=== PATIENT | female | born 1960 | race Caucasian/White ===

== ENCOUNTER 2017-12-01 13:00 | Inpatient (IN) | payer OTHER ==
[~2017-12-01] VITALS: Ht 157.5 cm; Wt 70.8 kg
[~2017-12-01 13:00] MED LIST: PROVENTIL0.5 ML/2.5 IH; TESSALON PERLE100 M1 PO; ZYRTEC10 M2 PO
== END 2017-12-20 13:45 | disposition home or self-care (01) | DRG 330 ==
LOC: SURG 12-17 07:00 → O/R 12-17 07:39 → SURH 12-17 07:39 → SURG 12-17 12:30 → SURH 12-17 19:37
PROVIDERS: Colon & Rectal Surgery
PROC: 0DJD8ZZ Inspection of Lower Intestinal Tract, Via Natural or Artificial Opening Endoscopic (ICD-10-PCS; 2017-12-17)
PROC: 3E0F7GC Introduction of Other Therapeutic Substance into Respiratory Tract, Via Natural or Artificial Opening (ICD-10-PCS; 2017-12-17)
PROC: 4A1BXSH Monitoring of Gastrointestinal Vascular Perfusion using Indocyanine Green Dye, External Approach (ICD-10-PCS; 2017-12-17)
PROC: 0DTN4ZZ Resection of Sigmoid Colon, Percutaneous Endoscopic Approach (ICD-10-PCS; principal; 2017-12-17 07:00)
DX: K57.32 Diverticulitis of large intestine without perforation or abscess without bleeding (principal); K91.840 Postprocedural hemorrhage of a digestive system organ or structure following a digestive system procedure; J45.20 Mild intermittent asthma, uncomplicated; D64.89 Other specified anemias

== ENCOUNTER → 2019-06-22 | Outpatient (CLI) | payer OTHER | END | disposition home or self-care (01) | LOC: TOM 08:16 | DX: K57.32 Diverticulitis of large intestine without perforation or abscess without bleeding (principal); R10.13 Epigastric pain; R19.4 Change in bowel habit ==

== ENCOUNTER 2019-06-29 10:36 | Day surgery (SDC) | payer OTHER | END 2019-06-29 14:55 | disposition home or self-care (01) | LOC: AMB-ENDOS 10:36 | DX: K62.89 Other specified diseases of anus and rectum (principal); K57.30 Diverticulosis of large intestine without perforation or abscess without bleeding; K64.8 Other hemorrhoids ==

== ENCOUNTER → 2021-03-23 | Emergency (ER) | payer OTHER ==
[~2021-03-23] VITALS: Ht 167.6 cm; Wt 77.1 kg
[~2021-03-23] MED LIST changes: +METFORMIN HCL500 M3; +SYNTHROID50 MCG
== END | disposition home or self-care (01) ==
LOC: ER 15:09
DX: M54.59 Other low back pain (principal); R30.0 Dysuria

== ENCOUNTER 2024-02-28 08:43 | Emergency (ER) | payer OTHER ==
[~2024-02-28] VITALS: Ht 157.5 cm; Wt 77.1 kg
[~2024-02-28 08:43] MED LIST changes: +ALTACE1.25 MG
[2024-02-28] MEDS ORDERED: KETOROLAC TROMETHAMINE 60 MG VIAL IM STA (10:26)
[2024-02-28 11:14] LABS: HEMATOCRIT 38.1 % (36.0-45.00); HEMOGLOBIN 12.9 g/dL (12.0-15.00); MEAN CELL VOLUME 90.1 fL (80.00-100.00); MEAN CORPUSCULAR HEMOGLOBIN 30.4 pg (27.00-32.0); MEAN CORPUSCULAR HGB CONC 33.8 g/dl (32.0-36.0); PLATELET COUNT 219 K/uL (150-450); RED BLOOD COUNT 4.23 M/uL (4.00-6.00); RED CELL DISTRIBUTION WIDTH 13.3 % (11.5-14.5)
[2024-02-28] MEDS ORDERED: CEFTRIAXONE SODIUM 1,000 MG VIAL IM STA (13:33)
== END 2024-02-28 13:41 | disposition home or self-care (01) ==
LOC: ER 08:45
DX: J03.90 Acute tonsillitis, unspecified (principal); Z87.09 Personal history of other diseases of the respiratory system; Z88.8 Allergy status to other drugs, medicaments and biological substances; E11.9 Type 2 diabetes mellitus without complications; Z79.84 Long term (current) use of oral hypoglycemic drugs; Z20.822 Contact with and (suspected) exposure to COVID-19

== ENCOUNTER → 2025-05-23 | Emergency (ER) | payer OTHER ==
[~2025-05-23] VITALS: Ht 157.5 cm; Wt 66.7 kg
[~2025-05-23] MED LIST changes: +0.9 % SODIUM CHLORIDE 1,000 ML IV ONE; +CEFTRIAXONE SODIUM 1,000 MG VIAL IV ONE; +KETOROLAC TROMETHAMINE 30 MG VIAL IV ONE; +MACROBID 100 M100 MG PO; +OZEMPIC1 MG/0.71 SQ; +PHENAZOPYRIDINE HCL 100 MG TABLET PO ONE; +PYRIDIUM100 M1 PO
[2025-05-23 12:17] VITALS: BP 123/78; O2SAT 100
[2025-05-23 15:42] LABS: BASO % 0.3 % (0.1-1.2); EOS # 0.12 (0.04-0.54); EOS % 0.8 % (0.7-7.0); LYMPH # 2.64 (1.18-3.74); LYMPH % 18.4 % (19.3-53.1); MEAN PLATELET VOLUME 11.00 fl (9.4-12.4); MONO # 0.69 (0.24-0.82); MONO % 4.8 % (4.7-12.5); NEUT # 10.79 (1.56-6.13); NEUT % 75.5 % (34.0-71.1); RED CELL DISTRIBUTION WIDTH 12.0 % (11.6-14.4)
[2025-05-23 16:12] LABS: ALT/SGPT 23.0 U/L (12-78); AST/SGOT 12.0 U/L (15-37); BILIRUBIN TOTAL 0.48 mg/dL (0.3-1.2); BUN CREA RATIO 16.0 (7.0-25.0); CREATININE SERUM 0.79 mg/dL (0.55-1.02); GFR 73.27; GLOBULINA 4.5 G/DL (2.4-3.5); GLUCOSE FASTING 92.0 mg/dL (65-100); OSMOLALITY SERUM 277.0 MOSM/KG (275-295)
[2025-05-23 18:47] LABS: URINE APPEARANCE Cloudy; URINE BILIRRUBIN Negative (NEGATIVE); URINE BLOOD Moderate; URINE COLOR Dark Yellow; URINE GLUCOSE Negative (NEGATIVE); URINE KETONE Negative (NEGATIVE); URINE LEUKOCYTE Large; URINE NITRATE Positive; URINE PROTEIN 30 (NEGATIVE); URINE UROBILINOGEN 1.0 E.U./dl
[2025-05-23 18:51] LABS: URINE BACTERIA 655.4 uL (0.0-1933); URINE EPITHELIAL CELLS 5.5 uL (0.0-38.8); URINE RBC 20.3 uL (0.0-20.8)
[2025-05-23 19:15] LABS: URINE CAST 0.70 uL (0.0-1.40)
== END | disposition home or self-care (01) ==
LOC: ER 10:16
DX: N39.0 Urinary tract infection, site not specified (principal); K57.30 Diverticulosis of large intestine without perforation or abscess without bleeding; K44.9 Diaphragmatic hernia without obstruction or gangrene; E11.9 Type 2 diabetes mellitus without complications; Z79.84 Long term (current) use of oral hypoglycemic drugs; I10 Essential (primary) hypertension; E03.9 Hypothyroidism, unspecified; Z88.8 Allergy status to other drugs, medicaments and biological substances